=== PATIENT | male | born 1970 | race Caucasian/White ===

== ENCOUNTER 2019-04-13 10:26 | Emergency (ER) | payer OTHER ==
[~2019-04-13] VITALS: Ht 185.4 cm; Wt 86.2 kg
[2019-04-13] MEDS ORDERED: ASPIR 8181 MG PO (10:50)
[2019-04-13] MEDS ORDERED: LISINOPRIL5 MG PO (10:50)
[2019-04-13 10:55] LABS: HEMATOCRIT 44.8 % (42.0-52.0); HEMOGLOBIN 15.1 gm/dL (14.0-18.0); MCH 33.7 pg (26.0-34.0); MCHC 33.7 g/dL (28.0-37.0); PLATELET COUNT 213 thou/uL (150-400); RBC 4.48 mil/uL (4.50-6.00); RDW 13.3 % (10.5-14.5); WBC 5.4 thou/uL (4.0-11.0)
[2019-04-13 11:01] LABS: ANION GAP 16 mmol/L (7-16); BUN 5 mg/dL (7-18); CALCIUM 9.3 mg/dL (8.5-10.1); CHLORIDE 100 mmol/L (98-107); CO2 23 mmol/L (21-32); GLUCOSE 111 mg/dL (74-106); SODIUM 139 mmol/L (136-145)
[2019-04-13 11:05] LABS: POTASSIUM 2.9 mmol/L (3.5-5.1)
[2019-04-13 11:11] LABS: ALBUMIN 4.5 g/dL (3.4-5.0); MAGNESIUM 1.6 mg/dL (1.8-2.4); SGOT 41 U/L (15-37); SGPT 49 U/L (30-65); TOTAL BILIRUBIN 0.4 mg/dL (<0.1-1.0); TROPONIN-I <0.06 ng/mL (<0.06)
[2019-04-13 11:32] LABS: ABSOLUTE NEUTROPHILS 2.9 thou/uL (1.4-8.2); PLATELET ESTIMATE NORMAL
[2019-04-13 12:05] VITALS: BP 146/102
[2019-04-13 12:05] LABS: AMP/METHAMP POSITIVE (Negative); BARBITURATES Negative (Negative); BENZODIAZEPINES Negative (Negative); COCAINE Negative (Negative); METHADONE Negative (Negative); OPIATES Negative (Negative); PCP Negative (Negative)
--- NOTE | 2019-04-14 07:43 | EKG ---
[address] [place] [address] ELECTROCARDIOGRAM REPORT Name: NENA VELAZQUEZ [id number] ������������������ Admission: 04/13/19 ������������������ Attend Phys: Discharge: 04/13/19 ������������������ Date of : 70 Report #: [id number] ����������������������������������������������������������������� [id number] THIS REPORT FOR: //name// [facility] ED Test Date: 2019-04-13 Test Time: 10:30:57 Pat Name: NENA VELAZQUEZ Department: Room: Gender: M [employer] Worker: FIDEL : 1970 Requested By: Scooby Vazquez Order Number: [id number] MD: Wolfgang Hernandez Measurements Intervals [place] Rate: 124 P: 37 NV: 133 QRS: -14 QRSD: 102 T: 30 QT: 314 QTc: 451 Interpretive Statements Sinus tachycardia Nonspecific ST segment abnormality Compared to ECG 08/06/2008 08:49:[address] segment abnormality is now present Electronically Signed On 04-14-2019 7:43:34 CDT by Wolfgang Hernandez [email or web address] ��������������������������������������������� <ELECTRONICALLY SIGNED> ���������������������������������������� By: Wolfgang Hernandez MD, [facility] ��������������������������������������������� 04/14/19 0743 1030 1030 Wolfgang Hernandez MD, FACC /EPI
== END 2019-04-13 12:05 | disposition home or self-care (01) ==
LOC: ER 10:26
PROVIDERS: Emergency Medicine
DX: R07.89 Other chest pain (principal); R42 Dizziness and giddiness; R10.13 Epigastric pain; T44.995A Adverse effect of other drug primarily affecting the autonomic nervous system, initial encounter; Y92.89 Other specified places as the place of occurrence of the external cause